=== PATIENT | male | born 1945 | race Two or more races ===

== ENCOUNTER 2016-11-11 11:47 | Observation (INO) | payer SELFPAY ==
--- NOTE | 2016-11-11 12:23 | CPEKG ---
Heart Rate: 99 RR Interval: 606 P-R Interval: 148 QRSD Interval: 92 QT Interval: 352 QTC Interval: 452 P Bradley: 59 QRS Bradley: 29 T Wave Bradley: 42 EKG Severity - NORMAL ECG - EKG Impression: SINUS RHYTHM Electronically Signed By: Eleonora Geiger 11-Nov-2016 14:37:05
[2016-11-11 12:48] LABS: % IMMATURE GRANULYOCYTES 0.4 % (0.0-1.1); ABSOLUTE IMMATURE GRANULOCYTES 0.04 10^3/uL (0.00-0.10); ADD DIFF? NO; ADD MORPH? NO; ADD SCAN? NO; ATYPICAL LYMPHOCYTE FLAG 10 (0-99); FRAGMENT RBC FLAG 0 (0-99); HEMOGLOBIN 14.5 g/dL (13.7-17.5); LEFT SHIFT FLG 0 (0-99); LIPEMIA HEMOLYSIS FLAG 90 (0-99); MEAN CELL HEMOGLOBIN 30.3 pg (27.9-34.1); MEAN CELL HEMOGLOBIN CONCENTR. 35.4 g/dL (32.4-36.7); MEAN CELL VOLUME 85.8 fL (81.5-99.8); MEAN PLATELET VOLUME 11.6 fL (8.7-11.7); PLATELET CLUMPS FLAG 0 (0-99); PLATELET COUNT 241 10^3/uL (150-400); RED BLOOD CELL COUNT 4.78 10^6/uL (4.40-6.38); RED CELL DISTRIBUTION WIDTH 11.9 % (11.5-15.2)
[2016-11-11 13:00] LABS: ANION GAP 14 mEq/L (8-16); CALCIUM 9.5 mg/dL (8.5-10.4); CARBON DIOXIDE 23 mEq/l (22-31); CHLORIDE 98 mEq/L (97-110); CREATININE 1.1 mg/dL (0.7-1.3); GLOMERULAR FILTRATION RATE > 60; POTASSIUM 4.5 mEq/L (3.5-5.2); SODIUM 135 mEq/L (134-144)
--- NOTE | 2016-11-11 13:08 | EDPHY ---
H & P Stated Complaint: C/O headache and RLE "falling asleep" x 2 days HPI/ROS: CHIEF COMPLAINT: Right leg numb HISTORY OF PRESENT ILLNESS: This patient is a Japanese-speaking 71 year old male with history of type II diabetes arriving with his family complaining of pain, numbness, and weakness in his right lower extremity, now resolved. The numbness was from his mid-michael down, and involved his entire foot. He has also had a mild headache intermittently for the last three days. He denies any weakness in his foot, or weakness or numbness elsewhere in his body. He endorses urinary urgency and frequency over the last couple days, and states he has not been feeling well. He denies dysuria. He takes pills to control his blood sugar that he gets at his home in [place], and states he rarely checks his blood sugar. He usually takes one pill with each meal, or two if he is feeling poorly. This morning, he took four because he felt his blood sugars may be off. He is currently visiting , and does not have a primary care physician in the area. He has not seen a doctor for years. He denies abdominal pain, nausea vomiting, diarrhea, chest pain, shortness of breath or other associated symptoms. No history of hypertension. HPI obtained primary through manufacturing manager at bedside. REVIEW OF SYSTEMS: A ten point review of systems was performed and is negative with the exception of the items mentioned in the HPI. - Personal History Current Tetanus Diphtheria and Acellular Pertussis (TDAP): No - Medical/Surgical History PMH: Diabetes mellitus, type II. Hx Diabetes: Yes Other PMH: diabetes type 2 - Social History Smoking Status: Never smoked Additional Social History: Nonsmoker. Occasional alcohol use. Family at bedside. Visiting from [place]. - Physical Exam Exam: General Appearance: Alert. Vital signs reviewed. Blood pressure 179/89. Eyes: Pupils equal and round, no conjunctival injection, no discharge. Anicteric. ENT, Mouth: Mucous membranes are moist, no oropharyngeal erythema or edema. Neck: No lymphadenopathy, supple. Respiratory: Lungs are clear to auscultation; no wheezes, rales, or rhonchi. Cardiovascular: Regular rate and rhythm; no murmur, rub, or gallop. Gastrointestinal: Abdomen is soft and nontender, no masses or organomegaly, bowel sounds normal. Skin: Warm and dry, no rashes on exposed skin, normal color. Back: Quarter-sized mass to left of spine at base of rib cage. Mobile, soft. Nontender to palpation over the thoracolumbar spine. No CVAT. Extremities: No lower extremity edema, no calf tenderness or swelling. Neurological: Alert and oriented. Cranial nerves II through XII are examined and are intact (visual acuity not tested). Strength is 5 over 5 bilaterally with testing of all major motor groups. Sensation is intact to light touch over all 4 extremities. Deep tendon reflexes are 2+ in the biceps and Constitutional: Initial Vital Signs Temperature (C) 36.7 C 11/11/16 11:55 Heart Rate 96 11/11/16 11:55 Respiratory Rate 18 11/11/16 11:55 Blood Pressure 179/89 H 11/11/16 11:55 O2 Sat (%) 94 11/11/16 11:55 O2 Delivery Mode Room Air Allergies/Adverse Reactions: No Known Allergies Allergy (Verified 11/11/16 16:21) Home Medications: Medication Instructions Recorded glyBURIDE [Glyburide] 5 mg PO TIDMEAL 11/11/16 Medical Decision Making - Diagnostics EKG Interpretation: 12 lead EKG is interpreted in Trace master View by emergency department physician. 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 Patient states he has had it since age 17. BGL 630. Plan to administer 2L IV NS and 5 units insulin. The patient's family will try to determine what pills he usually takes. Medication is glyburide. He took for 5 mg tablets this morning. 15:01 Reassessed patient. 15:46 BGL down to 423. Diabetic meal is being provided. I am recommending admission for further management of his diabetic hyperglycemia. He is not ketotic. He will likely need insulin. He will need diabetic teaching. He is going to be in the [place] for the next month and will need medical care during that time. I do not find evidence of lumbar radiculopathy and suspect that his foot numbness is diabetic neuropathy. He has remained hypertensive during his stay in the emergency department. He does not have a history of hypertension. If this persists he will need antihypertensive medication. Plan to admit for continued management and observation. Dr. Bell accepts admission. Differential Diagnosis: I considered a differential diagnosis that includes but is not limited to uncontrolled diabetes, diabetic ketoacidosis, hypertension, and infection. - Data Points Laboratory Results: Laboratory Results 11/11/16 12:30 11/11/16 14:55 Medications Given: Discontinued Medications Sodium Chloride (Ns) 1,000 mls @ 0 mls/hr IV ONCE ONE; Wide Open PRN Reason: Protocol Stop: 11/11/16 13:23 Last Admin: 11/11/16 13:36 Dose: 1,000 mls Sodium Chloride (Ns) 1,000 mls @ 0 mls/hr IV EDNOW ONE; Wide Open PRN Reason: Protocol Stop: 11/11/16 13:32 Last Admin: 11/11/16 13:36 Dose: 1,000 mls Insulin Human Regular (Humulin R) 5 unit IVP EDNOW ONE Stop: 11/11/16 13:24 Last Admin: 11/11/16 13:41 Dose: 5 units Departure - Departure Disposition: [facility] Inpatient Acute Clinical Impression: Hyperglycemia due to type 2 diabetes mellitus Qualifiers: Diabetes mellitus correction insulin use: without correction use Qualified Code(s ): E11.65 - Type 2 diabetes mellitus with hyperglycemia Hypertension Qualifiers: Hypertension type: essential hypertension Qualified Code(s): I10 - Essential ( primary) hypertension Condition: Fair Report Scribed for: Floresita Hernandez Report Scribed by: Anitha Moulton Date of Report: 11/11/16 Time of Report: 13:30 Physician Review and Approval Statement: 11/11/16 13:08 Portions of this note were transcribed by the chief medical physicist. I, Dr. Floresita Hernandez, personally performed the history, physical exam, and medical decision- making; and confirmed the accuracy of the information in the transcribed note.
[2016-11-11 13:16] LABS: GLUCOSE 630 mg/dL (70-100)
[2016-11-11] MEDS ORDERED: NS 1,000 ML IV ONE ×2 (13:22→13:31)
[2016-11-11] MEDS ORDERED: INSULIN REGULAR HUMAN 100 UNIT/ML IVP ONE (13:23)
[2016-11-11 14:09] LABS: HEMOGLOBIN A1C 14.2 % (4.0-6.0)
[2016-11-11 14:12] LABS: B-HYDROXYBUTYRATE 0.24 mmol/L (0.02-0.27)
[2016-11-11 14:32] LABS: COLOR COLORLESS; LEUKOCYTE ESTERASE,URINE NEGATIVE (NEGATIVE); NITRITE,URINE NEGATIVE (NEGATIVE)
[2016-11-11 14:39] LABS: RBC,URINE NONE SEEN /hpf (0-3); WBC,URINE NONE SEEN /hpf (0-3)
[2016-11-11 15:36] LABS: ANION GAP 11 mEq/L (8-16); CALCIUM 8.5 mg/dL (8.5-10.4); CARBON DIOXIDE 20 mEq/l (22-31); CHLORIDE 107 mEq/L (97-110); CREATININE 0.9 mg/dL (0.7-1.3); GLOMERULAR FILTRATION RATE > 60; GLUCOSE 422 mg/dL (70-100); POTASSIUM 3.9 mEq/L (3.5-5.2); SODIUM 138 mEq/L (134-144)
[2016-11-11] MEDS ORDERED: D50W 25 GM/50 ML SYR IVP PRN (17:14)
[2016-11-11] MEDS ORDERED: ACETAMINOPHEN 325 MG TAB PO PRN (17:15)
[2016-11-11] MEDS ORDERED: ONDANSETRON 4 MG/2 ML VIAL IVP PRN (17:15)
--- NOTE | 2016-11-11 17:52 | GHP ---
[f rep st] HISTORY AND PHYSICAL DATE OF ADMISSION: 11/11/2016 CHIEF COMPLAINT: High blood sugars. HISTORY OF PRESENT ILLNESS: This is a 71-year-old male, who arrived in the [facility] 3 weeks ago from [place], presented to the emergency department with high blood sugars. He states he has been feeling very weak with a mild headache. He reports polyuria, polydipsia, and polyphagia. He has been on g lyburide for some time which he takes 3 times a day. He denies a high carbohydrate diet. He denies any chest pain. He denies any shortness of breath. He denies any fevers or chills. PAST MEDICAL HISTORY: Diabetes. Denies any history of hypertension. PAST SURGICAL HISTORY: Denies. MEDICATIONS: Glyburide. ALLERGIES: No known drug allergies. SOCIAL HISTORY: The patient is visiting from [place] and plans to remain in the [facility] for the next 3 months. He denies any alcohol, tobacco, or illicit drug use. FAMILY HISTORY: Was significant for diabetes in his brothers. REVIEW OF SYSTEMS: Comprehensive 10-point review of systems was done and was negative, except for a s mentioned in the HPI. PHYSICAL EXAM: VITAL SIGNS: Blood pressure 174/106, pulse of 91, respiratory rate 18, O2 saturatio n 92% on room air. Temperature afebrile. GENERAL: No acute distress. HEAD: Normocephalic, atrau matic. EYES: PERRLA. Sclerae anicteric. MOUTH: Moist mucous membranes. NECK: Supple. No lymp hadenopathy. CARDIOVASCULAR: S1-S2. No murmurs, rubs, clicks, gallops, or JVD. No lower extremit y edema. PULMONARY: Lungs are clear. No wheezes, rales, or rhonchi. ABDOMEN: Soft, nontender, n ondistended. No guarding or rebound tenderness. Negative Burciaga sign. EXTREMITIES: No clubbing o r cyanosis. NEURO: Cranial nerves 2-12 grossly intact. No focal motor or sensory deficits. SKIN: Clear, no rashes. DIAGNOSTICS: EKG which I visualized and personally interpreted, shows sinus rhythm, rate 99 beats p er minute. There is no ST depression or elevation. There are no Q-waves. LABORATORY STUDIES: WBC is 9.2, hemoglobin 14.5, hematocrit 41, platelets 241. Sodium 138, potassi um 3.9, chloride 107, CO2 20 BUN 23, creatinine 0.9. Initial glucose was 630. Hemoglobin A1c was 1 4.2. UA was unremarkable with exception of 3+ glucose. ASSESSMENT AND PLAN: This is a 71-year-old, male, visiting from [place] presenting with: 1. Severe hyperglycemia in the setting of uncontrolled type 2 diabetes mellitus. Plan: I discusse d treatment options with the patient and informed him that he will likely need to be on insulin in t he short term. Will initiate NPH insulin at dose of 10 units at bedtime and 10 units in the morning . Also will be placed on a sliding scale regimen with regular insulin at this time as well. Will h old his home dose of glyburide and start him on metformin 500 mg twice daily, which can also be up t itrated to 1 g twice daily over the next few weeks. 2. Elevated blood pressure without history of hypertension. Plan: The patient is at high risk for diabetic nephropathy given his uncontrolled diabetes and hypertension. We will start Vasotec 5 mg p.o. daily and that should be titrated up as well. Ultimately, the patient will require outpatient followup while here in the [facility]. We will also preston d to get Case Management involved to help provide the patient with a glucometer, diabetic teaching, and also insulin. /[id number]/MODL
[2016-11-11] MEDS: POTASSIUM Cl (KCl) 20 MEQ in 1/2 NS 1,000 ML IV SCH (18:12)
[2016-11-11] MEDS: metFORMIN HCL 500 MG TAB PO SCH (18:12)
[2016-11-11] MEDS: ENALAPRIL MALEATE 5 MG TAB PO SCH (18:15)
[2016-11-11] MEDS: INSULIN NPH HUMAN 100 UNITS/ML SYRINGE SC SCH (20:33)
[2016-11-11 20:45] LABS: GLUCOSE 398 mg/dL (70-100)
[2016-11-11] MEDS: INSULIN REGULAR HUMAN 100 UNIT/ML SC SCH (21:23)
[2016-11-12] MEDS: INSULIN REGULAR HUMAN 100 UNIT/ML SC SCH ×3 (00:37→13:05)
[2016-11-12] MEDS: POTASSIUM Cl (KCl) 20 MEQ in 1/2 NS 1,000 ML IV SCH (03:00)
[2016-11-12 03:42] VITALS: TEMP 97.9
[2016-11-12 05:01] LABS: POTASSIUM 3.4 mEq/L (3.5-5.2)
[2016-11-12 05:03] LABS: ANION GAP 12 mEq/L (8-16); CALCIUM 8.9 mg/dL (8.5-10.4); CARBON DIOXIDE 24 mEq/l (22-31); CHLORIDE 110 mEq/L (97-110); GLOMERULAR FILTRATION RATE > 60; GLUCOSE 69 mg/dL (70-100); SODIUM 146 mEq/L (134-144)
[2016-11-12 07:10] VITALS: PULSE 86
[2016-11-12] MEDS: metFORMIN HCL 500 MG TAB PO SCH (09:18)
[2016-11-12] MEDS: ENALAPRIL MALEATE 5 MG TAB PO SCH (09:20)
[2016-11-12] MEDS: INSULIN NPH HUMAN 100 UNITS/ML SYRINGE SC SCH (09:20)
[2016-11-12 11:38] VITALS: BP 140/87; RESP 24; O2SAT 94
--- NOTE | 2016-11-12 12:04 | HOSPPROG ---
Hospitalist Progress Note Assessment/Plan: 71 yo M w symptomatic uncontrolled dm started on NPH and metformin w improved control enalapril for htn home today see dc summary Subjective: uncontrolled diabetes Objective: Vital Signs Temp Pulse Resp BP Pulse Ox 36.6 C 86 24 H 140/87 H 94 11/12/16 11:37 11/12/16 11:37 11/12/16 11:37 11/12/16 11:37 11/12/16 11:37 Laboratory Results 11/12/16 04:11 11/11/16 11/12/16 11/13/16 05:59 05:59 05:59 Intake Total 1999 1289 Output Total 1000 Balance 1000 1289 - Physical Exam Constitutional: no apparent distress, appears nourished Eyes: PERRL, anicteric sclera Ears, Nose, Mouth, Throat: moist mucous membranes, hearing normal Cardiovascular: regular rate and rhythym, no murmur, rub, or gallop Respiratory: no respiratory distress, no rales or rhonchi Gastrointestinal: normoactive bowel sounds, soft, non-tender abdomen Genitourinary: no bladder fullness, No driver in urethra Skin: warm, normal color Musculoskeletal: full muscle strength, no muscle tenderness Neurologic: AAOx3 ICD10 Worksheet Patient Problems: Problems Problem Status Onset Hyperglycemia due to type 2 diabetes mellitus Acute Hypertension Acute
[2016-11-12] MEDS ORDERED: PNEUMOC 13-VAL CONJ-DIP CRM/PF 0.5 ML SYR IM ONE (12:17)
--- NOTE | 2016-11-12 21:50 | GDS ---
[f rep st] DISCHARGE SUMMARY DISCHARGE DIAGNOSES: 1. Uncontrolled diabetes with hemoglobin A1c of 14.2, and presenting glucose of 630. 2. New hypertension. HOSPITAL COURSE: Please see admission history and physical by Dr. Randy Bell. The patient presente d with generalized weakness, polyuria, polydipsia. He has had diabetes for a long period of time an d takes glyburide 5 three times daily, but at this point in time has uncontrolled diabetes as eviden shweta by the aforementioned numbers. He was started on NPH 10 twice daily as well as metformin 500 tw ice daily and enalapril. He has done well. His morning sugar was 69 but otherwise his sugars have all been above 100. He is discharged home with that as well as a glucometer as well as encouragemen t from his family to follow up with [facility]. He lives in [place]. He does not see a doctor there, and he is visiting here for a number of months. He has given prescriptions with refills and encouraged to have a followup appointment at [facility]. /[id number]/MODL
== END 2016-11-12 15:53 | disposition home or self-care (01) ==
LOC: F3E 17:27
PROVIDERS: ADMIT Family Medicine; ATTEND Internal Medicine
DX: E11.65 Type 2 diabetes mellitus with hyperglycemia (principal); I10 Essential (primary) hypertension; Z79.84 Long term (current) use of oral hypoglycemic drugs; Z23 Encounter for immunization
CPT/HCPCS: 82947-QW; 96374; G0009; G0378; J1815

== ENCOUNTER 2016-12-28 18:03 | Inpatient (IN) | payer OTHER ==
--- NOTE | 2016-12-28 19:08 | EDPHY ---
H & P Time Seen by Provider: 12/28/16 18:47 HPI/ROS: CHIEF COMPLAINT: Coughing and fever HISTORY OF PRESENT ILLNESS: History with japanese interpreter at bedside. Patient has insulin-dependent diabetes and presents with cough and fever for 2 weeks with worsening shortness of breath over the last 2 days. Associated with productive white mucus but without chest pain. Subjective fever and chills. The daughter stated that when he started shaking he is hard to understand when he is talking. Associated with bloating and a little bit of a stomach ache and not being hungry. Associated with generalized fatigue. Symptoms moderate. REVIEW OF SYSTEMS: Eye: no change in vision ENT: no sore throat Cardiac: no chest pain or syncope Pulmonary: HPI Abdomen: no vomiting, diarrhea, abdominal pain Musculoskeletal: no back pain Skin: no rash Neuro: no headache Constitutional: HPI : no urinary symptoms A comprehensive 10 point review of systems is otherwise negative aside from elements mentioned in the history of present illness. PAST MEDICAL HISTORY: Insulin-dependent diabetes Social history: Nonsmoker, here with his daughters General Appearance: Alert and conversant, cooperative. Eyes: No scleral icterus. ENT, Mouth: Normal mucous membranes. Respiratory: Right lower lung crackles Cardiovascular: Regular rate and rhythm. Gastrointestinal: Abdomen is soft and non tender. Neurological: Alert and oriented x3. Normally conversant. Face symmetric, normal movement and sensation in all extremities. Skin: Warm and dry, no rashes. Musculoskeletal: No peripheral edema and no joint swelling. No calf tenderness. Psychiatric: Not agitated. Emergency Department course/MDM: Patient presents with cough fever and abnormal lung sounds. Plan for sepsis screen chest x-ray and labs. 1943: Chest x-ray personally reviewed shows bilateral pneumonia. Lactate negative. Ceftriaxone 1 g and azithromycin 500 mg admission for bilateral pneumonia with immune compromise and diabetes. 1954: Results discussed with patient and family. Does not have sepsis or severe sepsis. Smoking Status: Never smoked Constitutional: Initial Vital Signs Temperature (C) 36.6 C 12/28/16 18:14 Heart Rate 91 12/28/16 18:14 Respiratory Rate 18 12/28/16 18:14 Blood Pressure 157/87 H 12/28/16 18:14 O2 Sat (%) 94 12/28/16 18:14 O2 Delivery Mode Room Air Allergies/Adverse Reactions: No Known Allergies Allergy (Verified 12/28/16 18:13) Home Medications: Medication Instructions Recorded glyBURIDE [Glyburide] 5 mg PO TIDMEAL 11/11/16 Aspirin EC [Aspirin EC 81 mg (*)] 81 mg PO DAILY PRN 12/28/16 Atorvastatin Calcium [Lipitor 40 40 mg PO DAILY 12/28/16 mg (*)] Enalapril Maleate [Vasotec 20 MG 20 mg PO DAILY 12/28/16 (*)] Insulin NPH Human [humULIN N 100 14 units SC BIDAC 12/28/16 UNITS/ML (*)] metFORMIN HCL [Glucophage 500 mg 1,000 mg PO BIDMEAL 12/28/16 (*)] Medical Decision Making - Diagnostics Imaging Results: Chest x-ray personally reviewed shows pneumonia bilateral. Differential Diagnosis: Differential diagnosis considered for shortness of breath including but not limited to pulmonary infectious process, COPD, asthma, pulmonary embolus and congestive heart failure. Consult/Admit Bed Type: [place] [id number] - Data Points Laboratory Results: Laboratory Results 12/28/16 19:20 12/28/16 19:20 12/28/16 12/28/16 12/28/16 19:22 19:20 19:20 WBC RBC Hgb Hct MCV MCH MCHC RDW Plt Count MPV Neut % (Auto) Lymph % (Auto) [place] % (Auto) Eos % (Auto) Baso % (Auto) Nucleat RBC Rel Count Absolute Neuts (auto) Absolute Lymphs (auto) Absolute Monos (auto) Absolute Eos (auto) Absolute Basos (auto) Absolute Nucleated RBC Immature Gran % Seg Neutrophils % Band Neutrophils % Lymphocytes % Monocytes % Basophils % Immature Gran # Absolute Seg Neuts Absolute Band Neuts Absolute Lymphocytes Absolute Monocytes Absolute Basophils RBC/WBC/PLT Morphology Dohle Bodies Platelet Estimate PT INR APTT VBG Lactic Acid 1.5 mmol/L mmol/L (0.7-2.1) Sodium 129 mEq/L L mEq/L (134-144) Potassium 3.9 mEq/L mEq/L (3.5-5.2) Chloride 94 mEq/L L mEq/L (97-110) Carbon Dioxide 23 mEq/l mEq/l (22-31) Anion Gap 12 mEq/L mEq/L (8-16) BUN 27 mg/dL H mg/dL (7-23) Creatinine 1.3 mg/dL mg/dL (0.7-1.3) Estimated GFR 55 Glucose 388 mg/dL H mg/dL (70-100) Calcium 8.1 mg/dL L mg/dL (8.5-10.4) Total Bilirubin 0.6 mg/dL mg/dL (0.1-1.4) Procalcitonin 3.99 ng/mL H ng/mL (0.02-0.10) 12/28/16 12/28/16 19:20 19:20 WBC 8.91 10^3/uL 10^3/uL (3.80-9.50) RBC 4.06 10^6/uL L 10^6/uL (4.40-6.38) Hgb 11.7 g/dL L g/dL (13.7-17.5) Hct 33.9 % L % (40.0-51.0) MCV 83.5 fL fL (81.5-99.8) MCH 28.8 pg pg (27.9-34.1) MCHC 34.5 g/dL g/dL (32.4-36.7) RDW 12.2 % % (11.5-15.2) Plt Count 179 10^3/uL 10^3/uL (150-400) MPV 10.2 fL fL (8.7-11.7) Neut % (Auto) Not Reported Lymph % (Auto) Not Reported [place] % (Auto) Not Reported Eos % (Auto) Not Reported Baso % (Auto) Not Reported Nucleat RBC Rel Count 0.0 % % (0.0-0.2) Absolute Neuts (auto) Not Reported Absolute Lymphs (auto) Not Reported Absolute Monos (auto) Not Reported Absolute Eos (auto) Not Reported Absolute Basos (auto) Not Reported Absolute Nucleated RBC 0.00 10^3/uL 10^3/uL (0-0.01) Immature Gran % Not Reported Seg Neutrophils % 68 % % Band Neutrophils % 20 % % Lymphocytes % 9 % % Monocytes % 2 % % Basophils % 1 % % Immature Gran # Not Reported Absolute Seg Neuts 6.06 10^/uL 10^/uL (1.70-6.50) Absolute Band Neuts 1.78 10^3/uL H 10^3/uL (0.00-0.70) Absolute Lymphocytes 0.80 10^3/uL L 10^3/uL (1.00-3.00) Absolute Monocytes 0.18 10^3/uL L 10^3/uL (0.30-0.80) Absolute Basophils 0.09 10^3/uL 10^3/uL (0.02-0.10) RBC/WBC/PLT Morphology NORMAL (NORMAL) Dohle Bodies PRESENT H Platelet Estimate ADEQUATE (ADEQ) PT 13.7 SEC SEC (12.0-15.0) INR 1.06 (0.83-1.16) APTT 33.1 SEC SEC (23.0-38.0) VBG Lactic Acid Sodium Potassium Chloride Carbon Dioxide Anion Gap BUN Creatinine Estimated GFR Glucose Calcium Total Bilirubin Procalcitonin Medications Given: Albuterol/Ipratropium (Duoneb) 3 ml IH QID JOSE Stop: 06/26/17 20:59 Last Admin: 12/28/16 22:01 Dose: 3 ml Guaifenesin (Mucinex) 1,200 mg PO BID [facility] Stop: 06/26/17 20:44 Last Admin: 12/28/16 21:17 Dose: Not Given Discontinued Medications Azithromycin 500 mg/ Dextrose 255 mls @ 255 mls/hr IV EDNOW ONE PRN Reason: Protocol Stop: 12/28/16 20:45 Last Admin: 12/28/16 21:11 Dose: 255 mls Ceftriaxone Sodium/Dextrose (Rocephin 1 Gm (Premix)) 50 mls @ 100 mls/hr IV EDNOW ONE PRN Reason: Protocol Stop: 12/28/16 20:15 Last Admin: 12/28/16 20:11 Dose: 50 mls Sodium Chloride (Ns) 1,000 mls @ 0 mls/hr IV EDNOW ONE; Wide Open PRN Reason: Protocol Stop: 12/28/16 19:47 Last Admin: 12/28/16 20:10 Dose: 1,000 mls Sodium Chloride (Ns) 1,000 mls @ 3,000 mls/hr IV ONCE ONE Stop: 12/28/16 20:53 Last Admin: 12/28/16 21:11 Dose: 1,000 mls Departure - Departure Disposition: [facility] Inpatient Acute Clinical Impression: Pneumonia Qualifiers: Pneumonia type: due to unspecified organism Laterality: bilateral Lung location : lower lobe of lung Qualified Code(s): J18.9 - Pneumonia, unspecified organism Condition: Fair
[2016-12-28 19:38] LABS: ADD MORPH? NO; ATYPICAL LYMPHOCYTE FLAG 0 (0-99); FRAGMENT RBC FLAG 0 (0-99); HEMATOCRIT 33.9 % (40.0-51.0); HEMOGLOBIN 11.7 g/dL (13.7-17.5); LIPEMIA HEMOLYSIS FLAG 90 (0-99); MEAN CELL HEMOGLOBIN 28.8 pg (27.9-34.1); MEAN CELL HEMOGLOBIN CONCENTR. 34.5 g/dL (32.4-36.7); MEAN CELL VOLUME 83.5 fL (81.5-99.8); MEAN PLATELET VOLUME 10.2 fL (8.7-11.7); PLATELET CLUMPS FLAG 10 (0-99); PLATELET COUNT 179 10^3/uL (150-400); RED BLOOD CELL COUNT 4.06 10^6/uL (4.40-6.38); RED CELL DISTRIBUTION WIDTH 12.2 % (11.5-15.2)
[2016-12-28 19:39] LABS: ADD DIFF? YES; LEFT SHIFT FLG 100 (0-99)
[2016-12-28 19:40] LABS: ADD SCAN? NO
[2016-12-28] MEDS ORDERED: AZITHROMYCIN IV 500 MG in D5W 250 ML IV ONE (19:46)
[2016-12-28] MEDS ORDERED: NS 1,000 ML IV ONE ×2 (19:46→20:34)
[2016-12-28 19:48] LABS: INR 1.06 (0.83-1.16); PROTIME(PATIENT) 13.7 SEC (12.0-15.0)
[2016-12-28 19:49] LABS: APTT 33.1 SEC (23.0-38.0)
[2016-12-28 19:56] LABS: ANION GAP 12 mEq/L (8-16); BILIRUBIN,TOTAL 0.6 mg/dL (0.1-1.4); CALCIUM 8.1 mg/dL (8.5-10.4); CARBON DIOXIDE 23 mEq/l (22-31); CHLORIDE 94 mEq/L (97-110); CREATININE 1.3 mg/dL (0.7-1.3); GLOMERULAR FILTRATION RATE 55; GLUCOSE 388 mg/dL (70-100); POTASSIUM 3.9 mEq/L (3.5-5.2); SODIUM 129 mEq/L (134-144)
[2016-12-28] MEDS ORDERED: ACETAMINOPHEN 325 MG TAB PO PRN (20:23)
[2016-12-28] MEDS ORDERED: ONDANSETRON DISINTEGRATING 4 MG TAB PO PRN (20:23)
[2016-12-28] MEDS ORDERED: ONDANSETRON 4 MG/2 ML VIAL IVP PRN (20:23)
[2016-12-28] MEDS ORDERED: ASPIRIN EC 81 MG TAB PO PRN (20:36)
[2016-12-28] MEDS ORDERED: D50W 25 GM/50 ML SYR IVP PRN (20:36)
[2016-12-28 20:49] LABS: PLATELET ESTIMATE ADEQUATE (ADEQ)
--- NOTE | 2016-12-28 21:03 | GHP ---
[f rep st] HISTORY AND PHYSICAL DATE OF ADMISSION: 12/28/2016 CHIEF COMPLAINT: Cough. HISTORY OF PRESENT ILLNESS: This is a 71-year-old male with a history of diabetes, who presents with about a week and a half to 2 weeks of feeling poorly. This includes fever, cough, it has been mildl y productive of some clear sputum. No one else is sick around him. He does not have any known under lying lung disease. PAST MEDICAL/SURGICAL HISTORY: 1. Diabetes mellitus type 2. He had a recent admission here for hyperglycemia, recently started on insulin and metformin. 2. Hypertension. MEDICATIONS: Please see medication reconciliation. ALLERGIES: No known drug allergies. FAMILY HISTORY: Reviewed and noncontributory. SOCIAL HISTORY: He lives in [place]. He is here visiting his daughters. He has 18 children total, 1 2 daughters and 6 sons. REVIEW OF SYSTEMS: A 10-point review of systems is conducted and is negative except per HPI. PHYSICAL EXAM: VITAL SIGNS: Blood pressure 163/87, heart rate 88, respiration rate 18, saturating 9 3% on 3 L. Temperature 36.9. GENERAL: The patient is a pleasant man who appears comfortable, in no acute distress. HEENT: Shows him to be normocephalic atraumatic. CARDIOVASCULAR: Shows a regular rate and rhythm. No murmurs, rubs, or gallops. PULMONARY: Shows him to be in no respiratory distr ess, but he has diffuse inspiratory and expiratory crackles. ABDOMEN: Soft, nontender, nondistended . SKIN: No rash. : Shows no Goodman. NEUROLOGIC: Shows him to be alert and oriented x3. He is moving all extremities. PSYCHIATRIC: Shows normal mood and affect. LABS: White count is 8.9, there is no differential, hemoglobin 11. INR is 1. Lactate 1.5. Sodium is 129, glucose is 388, creatinine is 1.3. DATA: 1. I discussed with Dr. Norris. We will admit to medical/surgery. 2. Chest x-ray, which I personally viewed and interpreted, shows bilateral infiltrates with bibasila r predominance. IMPRESSION/PLAN: This is a 71-year-old male with likely bilateral pneumonia. 1. Pneumonia: This is quite impressive on his x-ray but he is not very dyspneic. You do see a annie le fluid in the major fissure. I suspect this is pneumonia given his overall presentation but these findings could be consistent with other processes like pulmonary edema, or an interstitial lung disea se. We will check an influenza. Given his diabetes and age, I think it is reasonable to continue tr eatment for a bacterial pneumonia now. I have drawn a procalcitonin as well. I note that he has a n ormal white count. We will provide him with nebulizers and Mucinex as well. 2. Diabetes mellitus with hyperglycemia: We will continue his home insulin and add sliding scale in sulin. His last A1c was 14. 3. Hypertension: Blood pressure here is still elevated. He had recently been started on enalapril. If it is still elevated tomorrow, consider up titrating. /[id number]/MODL
[2016-12-28] MEDS: guaiFENesin 600 MG TAB.ER PO SCH ×2 (21:11→21:17)
[2016-12-28] MEDS ORDERED: INSULIN LISPRO 100 UNIT/ML SC ONE (21:49)
[2016-12-28] MEDS: IPRATROPIUM/ALBUTEROL 3 ML DEYVIAL IH SCH (22:01)
[2016-12-29] MEDS: methylPREDNISolone SOD SUCC 125 MG/2 ML VIAL IVP SCH ×4 (00:06→11:47)
[2016-12-29 04:58] LABS: % IMMATURE GRANULYOCYTES 0.4 % (0.0-1.1); ABSOLUTE IMMATURE GRANULOCYTES 0.04 10^3/uL (0.00-0.10); ADD DIFF? NO; ADD MORPH? NO; ADD SCAN? NO; ATYPICAL LYMPHOCYTE FLAG 0 (0-99); FRAGMENT RBC FLAG 0 (0-99); HEMATOCRIT 31.4 % (40.0-51.0); HEMOGLOBIN 11.1 g/dL (13.7-17.5); LEFT SHIFT FLG 90 (0-99); LIPEMIA HEMOLYSIS FLAG 90 (0-99); MEAN CELL HEMOGLOBIN 29.3 pg (27.9-34.1); MEAN CELL HEMOGLOBIN CONCENTR. 35.4 g/dL (32.4-36.7); MEAN CELL VOLUME 82.8 fL (81.5-99.8); MEAN PLATELET VOLUME 10.6 fL (8.7-11.7); PLATELET CLUMPS FLAG 0 (0-99); PLATELET COUNT 179 10^3/uL (150-400); RED BLOOD CELL COUNT 3.79 10^6/uL (4.40-6.38); RED CELL DISTRIBUTION WIDTH 12.3 % (11.5-15.2)
[2016-12-29 05:14] LABS: ALANINE AMINOTRANSFERASE 168 IU/L (21-72); ALBUMIN 2.3 g/dL (3.5-5.0); ALKALINE PHOSPHATASE 157 IU/L (38-126); ANION GAP 9 mEq/L (8-16); ASPARTATE AMINOTRANSFERASE 361 IU/L (17-59); BILIRUBIN,TOTAL 0.5 mg/dL (0.1-1.4); CALCIUM 7.9 mg/dL (8.5-10.4); CARBON DIOXIDE 20 mEq/l (22-31); CHLORIDE 101 mEq/L (97-110); CREATININE 1.1 mg/dL (0.7-1.3); GLOMERULAR FILTRATION RATE > 60; GLUCOSE 236 mg/dL (70-100); POTASSIUM 4.2 mEq/L (3.5-5.2); SODIUM 130 mEq/L (134-144); TOTAL PROTEIN 5.2 g/dL (6.3-8.2)
[2016-12-29] MEDS: IPRATROPIUM/ALBUTEROL 3 ML DEYVIAL IH SCH ×4 (05:39→21:17)
[2016-12-29] MEDS ORDERED: INSULIN NPH HUMAN 100 UNITS/ML SYRINGE SC SCH (07:30)
[2016-12-29] MEDS ORDERED: metFORMIN HCL 500 MG TAB PO SCH (08:00)
--- NOTE | 2016-12-29 08:33 | HOSPPROG ---
Hospitalist Progress Note Assessment/Plan: Wake patient is a 71-year-old male with history of diabetes who presented the emergency room for feeling poorly. Today is my 1st encounter with the patient. Chart reviewed. * bilateral pneumonia Procalcitonin is elevated/high risk for bacterial infection White blood cell count is not elevated He is requiring 5 L of oxygen On ceftriaxone and azithromycin respiratory panel negative will ask ID to get involved * diabetes type 2 Glucoses are quite elevated Continue sliding scale will dc steroids for now * elevated liver enzymes Will repeat and also check for hepatitis * hypertension Blood pressure is 157/87 * tachycardia due to acute illness *hyponatremia likely secondary to dehydration * plan. The patient is requiring 5 L of oxygen. Is normally on room air. He will require another midnight stay to treat with IV antibiotics. This will make him inpatient status. Will ask ID to get involved. Subjective: yves says he feels poorly, has had a poor appetite. Has ongoing shortness of breath (met w patient via test equipment mechanic) Objective: Vital Signs Temp Pulse Resp BP Pulse Ox 37.1 C 105 H 22 H 157/87 H 93 12/29/16 07:09 12/29/16 07:09 12/29/16 07:09 12/29/16 07:09 12/29/16 07:09 Microbiology 12/28/16 20:30 Respiratory Panel (PCR) - Final Unspecified No Organism Detected Laboratory Results 12/29/16 04:25 12/29/16 04:25 12/28/16 12/29/16 12/30/16 05:59 05:59 05:59 Intake Total 300 Balance 300 PT 13.7 SEC (12.0-15.0) 12/28/16 19:20 INR 1.06 (0.83-1.16) 12/28/16 19:20 - Physical Exam Constitutional: chronically ill appearing Eyes: PERRL Ears, Nose, Mouth, Throat: hearing normal Cardiovascular: regular rate and rhythym, tachycardia Respiratory: reduced air movement, rhonchi (scattered throughout, ) Gastrointestinal: normoactive bowel sounds, soft, non-tender abdomen Skin: warm Musculoskeletal: full muscle strength Neurologic: AAOx3 Psychiatric: interacting appropriately ICD10 Worksheet Patient Problems: Problems Problem Status Onset Pneumonia Acute Hyperglycemia due to type 2 diabetes mellitus Acute Hypertension Acute
[2016-12-29] MEDS ORDERED: AZITHROMYCIN IV 500 MG in D5W 250 ML IV SCH (09:00)
[2016-12-29] MEDS: INSULIN LISPRO 100 UNIT/ML SC SCH ×2 (09:07→12:40)
[2016-12-29] MEDS: ENOXAPARIN 40 MG/0.4 ML SYR SC SCH (10:13)
[2016-12-29] MEDS: ENALAPRIL MALEATE 10 MG TAB PO SCH (10:14)
[2016-12-29] MEDS: ATORVASTATIN CALCIUM 40 MG TAB PO SCH (10:15)
[2016-12-29] MEDS: guaiFENesin 600 MG TAB.ER PO SCH ×2 (10:15→20:33)
[2016-12-29 12:27] LABS: GLUCOSE 554 mg/dL (70-100)
[2016-12-29] MEDS ORDERED: INSULIN LISPRO 100 UNIT/ML SC ONE (12:31)
--- NOTE | 2016-12-29 16:51 | HOSPPROG ---
Hospitalist Progress Note Assessment/Plan: Wake patient is a 71-year-old male with history of diabetes who presented the emergency room for feeling poorly. Today is my 1st encounter with the patient. Chart reviewed. * bilateral pneumonia Procalcitonin is elevated/high risk for bacterial infection White blood cell count is not elevated He is requiring 5 L of oxygen On ceftriaxone and azithromycin respiratory panel negative will ask ID to get involved * diabetes type 2 Glucoses are quite elevated Continue sliding scale will dc steroids for now * elevated liver enzymes Will repeat and also check for hepatitis * hypertension Blood pressure is 157/87 * tachycardia due to acute illness *hyponatremia likely secondary to dehydration * plan. reviewed his care with both Dr. Palafox and Dr. Erika Garvey. Dr. Garvey to change antibiotic to Levaquin to cover Legionella. >40 minutes face to face, coordinating care and tx to ICU/ appreciate both Dr Palafox and Dr Garvey. Objective: Vital Signs Temp Pulse Resp BP Pulse Ox 36.9 C 97 20 157/87 H 90 L 12/29/16 15:12 12/29/16 15:12 12/29/16 15:12 12/29/16 15:12 12/29/16 16:09 Microbiology 12/28/16 20:30 Respiratory Panel (PCR) - Final Unspecified No Organism Detected Laboratory Results 12/29/16 04:25 12/28/16 12/29/16 12/30/16 05:59 05:59 05:59 Intake Total 300 Balance 300 PT 13.7 SEC (12.0-15.0) 12/28/16 19:20 INR 1.06 (0.83-1.16) 12/28/16 19:20 ICD10 Worksheet Patient Problems: Problems Problem Status Onset Pneumonia Acute Hyperglycemia due to type 2 diabetes mellitus Acute Hypertension Acute
[2016-12-29 16:53] LABS: BASE EXCESS -5.9 mEq/L (-2.5-2.5); BICARBONATE 16 mEq/L (22-26); MEASURED OXYGEN SATURATION 88 % (92-95); PCO2 23 mmHg (34-38); PO2 50 mmHg (65-75); TCO2 17 mEq/L (23-27)
[2016-12-29 16:59] LABS: GLUCOSE 454 mg/dL (70-100)
[2016-12-29] MEDS ORDERED: D5W 1,000 ML IV SCH (17:15)
--- NOTE | 2016-12-29 17:31 | GCON ---
[f rep st] CONSULTATION DATE OF CONSULTATION: 12/28/2016 REFERRING PHYSICIAN: Ewa Madrid NP REASON FOR CONSULTATION: Bilateral pneumonia. Entire exam and physical exam were obtained with the assistance of an piano case and bench assembler. HISTORY OF PRESENT ILLNESS: A 71-year-old male with poorly controlled diabetes x19 years who normally lives in [place], who for the last 2 months has been visiting his daughters here in the [place] area. Three days ago, he describes the onset of dry cough and very severe myalgias. He felt very poorly, but he reports that his family told him "you just have a cold." Symptoms progressed and patient presented to the ER 12/28/2016 at 1845 with complaints of cough and fever. His myalgias were so severe that he had difficulty walking. In the emergency room, patient was found to have bilateral pneumonia with a negative lactate and a positive procalcitonin. The patient was given a dose of IV ceftriaxone and azithromycin and was admitted to the floor. Overnight, the patient has had increasing O2 demands with plans to transfer to the ICU at the time of my history and physical. The patient was on 11 L but was not dyspneic. PAST MEDICAL HISTORY: 1. Diabetes x19 years, recent admission [facility] for hyperglycemia and was started on insulin and metformin. 2. Hypertension. MEDICATIONS: Ceftriaxone 1 g IV daily, azithromycin 500 mg, insulin, Lipitor, aspirin. ALLERGIES: NKDA. FAMILY HISTORY: The patient denies recent sick contacts, otherwise, was reviewed and noncontributory. 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 He rides horses. No other livestock contact. No pets with his family here locally. He has 18 children; 12 daughters and 6 sons. No tobacco use. Immunization: Patient received pneumococcal 13 on 2016. REVIEW OF SYSTEMS: A complete 10-point Review of Systems was performed and was negative except as mentioned in the HPI. Specific pertinent negatives are: He denies headache, sore throat, rash, diarrhea. He does report a 3- to 5-pound weight loss. PHYSICAL EXAM: VITAL SIGNS: Blood pressure 157/87, heart rate in the low 100s , O2 sat 92% on 11 L, respiratory rate is 15. GENERAL: This is a relatively comfortable male sitting up in bed, wearing a face mask for oxygen supplementation. HEENT: Pupils are reactive bilaterally. [place] sclera. Oropharynx: Poor dentition. Moist mucous membranes. No oral ulcerations. NECK: Supple. No lymphadenopathy. No tenderness. CARDIOVASCULAR: Borderline tachycardia. Regular rate. No murmur. CHEST: Patient has bilateral crackles to about [address] bilaterally. No accessory respiratory muscle use. ABDOMEN: Soft, nondistended. Mild tenderness to the right lower quadrant. EXTREMITIES: No clubbing, cyanosis, or edema. No splinter hemorrhages or Janeway lesions suggestive of endocarditis. No joint swelling. SKIN: No rash. NEUROLOGIC: He is alert oriented x4. Fluent speech. Moving all 4 extremities equally. LABORATORY: White count is 9.9, hematocrit 31, platelets of 179, 95% neutrophils. INR 1. Lactic acid 1.5. Creatinine 1.1. Glucose from 200-600. AST 361, ALT 168, alk phos 157, albumin 2.3. Procalcitonin 3.9. Respiratory PCR was negative as well as influenza PCR. Blood cultures were collected yesterday, 12/28/2016, and are no growth to date. ASSESSMENT AND PLAN: This is a 71-year-old male who presents with fever and cough, who has evolving sepsis secondary to bilateral pneumonia. Associated findings of sepsis include leukocytosis, anemia, elevated liver function tests and worsening hypoxia. 1. Sepsis secondary to bilateral pneumonia. 2. Bilateral pneumonia. The patient without clear evidence of zoonotic source of pneumonia. Suspect pneumococcus, Haemophilus influenzae, but due to severity of disease, consider legionella. Mycoplasma and chlamydia are less like as resp panel PCR negative. 3. Elevated LFTs RECOMMENDATIONS: 1. DC ceftriaxone and azithromycin. Would start levofloxacin 750mg for it slightly better performance with coverage for legionella. 2. Would obtain HIV, hepatitis C, hepatitis B and A serologies to better sort out elevated liver function tests, although suspect due to sepsis. 3. We will continue to monitor blood cultures. 4. Would obtain a sputum culture to try to pinpoint a pathogen. Case was discussed with primary team. /[id number]/MODL MTDD
[2016-12-29] MEDS ORDERED: ALTEPLASE 2 MG VIAL IVP PRN (17:39)
[2016-12-29] MEDS: INSULIN REGULAR HUMAN 100 UNIT in NS 100 ML IV SCH (17:40)
[2016-12-29 18:11] LABS: POTASSIUM 5.6 mEq/L (3.5-5.2)
[2016-12-29 18:48] LABS: ANION GAP 12 mEq/L (8-16); CARBON DIOXIDE 17 mEq/l (22-31); CHLORIDE 100 mEq/L (97-110); CREATININE 1.2 mg/dL (0.7-1.3); GLOMERULAR FILTRATION RATE > 60; GLUCOSE 442 mg/dL (70-100); SODIUM 129 mEq/L (134-144)
[2016-12-29 18:54] LABS: SPECIMEN HEMOLYSIS 289
[2016-12-29 19:50] LABS: HEMOGLOBIN A1C 11.6 % (4.0-6.0)
[2016-12-29 21:08] LABS: ANION GAP 9 mEq/L (8-16); CALCIUM 8.2 mg/dL (8.5-10.4); CARBON DIOXIDE 21 mEq/l (22-31); CHLORIDE 100 mEq/L (97-110); CREATININE 1.2 mg/dL (0.7-1.3); GLOMERULAR FILTRATION RATE > 60; GLUCOSE 360 mg/dL (70-100); POTASSIUM 3.7 mEq/L (3.5-5.2); SODIUM 130 mEq/L (134-144)
--- NOTE | 2016-12-29 21:16 | GCON ---
[f rep st] CONSULTATION PULMONARY CONSULTATION DATE OF CONSULTATION: 12/29/2016 REASON FOR CONSULTATION: Community-acquired pneumonia. HISTORY: The patient is a very pleasant 71-year-old gentleman who generally lives in [place]. He has been here for the last couple of months visiting family. He states that he has had 10 days of a primarily dry cough, associated with some shortness of breath. He has been unable to bring up much mucus and cannot really characterize this. He has had myalgias and some shortness of breath/dyspnea on exertion. However, the latter has been fairly minimal. However, he has not been exerting himself much secondary to his illness. He has had some fatigue, and has felt ill. He seems to describe some fevers. He presented to the emergency room yesterday. Chest x-ray showed bibasilar infiltrates. He was not hypotensive. He was initially given ceftriaxone and azithromycin. The latter has been changed to Levaquin by Infectious Disease. No other family members have been ill. He is not working. 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 There is no history of tuberculosis. He has had no other exposures. PAST MEDICAL HISTORY: He has insulin-requiring diabetes, systemic hypertension , and hyperlipidemia. SOCIAL HISTORY: The patient is here living with family. He lives in [place] on a ranch/farm. He has exposure to horses. He harvests beans and corn. He is a never smoker. Significant alcohol is negative. FAMILY HISTORY: Noncontributory/negative. No one in his family has been ill. REVIEW OF SYSTEMS: He denies previous issues with his lungs or his heart. There is no history of thromboembolic disease. He denies previous pneumonia. A 10-point review of systems otherwise negative. ALLERGIES: No known drug allergies. PHYSICAL EXAMINATION: GENERAL: Reveals a pleasant gentleman who is sitting comfortably in bed. Nasal cannula oxygen is in place at 6 L. He is conversant , does not appear tachypneic. He is eating dinner. HEENT: Remarkable for the fact that he is well tanned. Blood pressure is 157/81, heart rate 95 with sinus rhythm on the monitor. Saturations are 93%. HEENT: Unremarkable for lymphadenopathy or thyromegaly. There is no obvious jugular venous distention. Mucous membranes are moist. NECK: Supple. PULMONARY: The chest reveals rales on the right side, more than the left. There are consolidative changes, no rhonchi. There are no wheezes. There are also some rales at the left base. Rales extend about three-quarters of the way up on the right side. HEART: Regular in rate and rhythm. There is a soft systolic murmur, no gallops. P2 appears normal. ABDOMEN: Soft and nontender. Bowel sounds are present. EXTREMITIES: Unremarkable for edema, cords, or tenderness. NEUROLOGIC: Examination is intact and nonfocal. He is conversant and appropriate. LABORATORY DATA: Chest x-ray shows progressive bilateral infiltrates, right greater than left. The latest x-ray shows a new PICC line in place. White blood cell count is 10,000, hematocrit 31.4. Platelets are 179,000. PT and PTT on admission were normal. Blood gas done a few hours ago shows a pH of 7.46, pCO2 of 23, and PO2 50 with saturations of 88%. I do not know the exact amount oxygen he was on at that time. Venous lactate last night was 1.5. Sodium is 129 with potassium of 5.6, CO2 17, BUN 30 with a creatinine of 1.2. Glucoses have been elevated in the 400-500 range. Calcium is 8. Serology is negative for flu. Hepatitis antibodies are negative. Other serology is pending. ASSESSMENT: 1. Community-acquired pneumonia. The patient has a bilateral multilobar pneumonia, presumably bacterial. Current antibiotic coverage is appropriate. Currently, he is doing well, is comfortable, not particularly tachypneic. This appears to be somewhat better compared to several hours ago when he was transferred to the Intensive Care Unit. He is hypoxemic with appropriate respiratory compensation for mild acidosis. He could possibly worsen if his pneumoniae continues to progress before he gets better. Other issues could impact his illness, such as a development of ARDS, but there is no evidence of this at the current time. Bronchopulmonary therapies do need to be continued. He was given steroids last night, but this resulted in significantly elevated blood glucoses. They have now been stopped, and would not appear to be indicated at this time. 2. Hyperglycemia. Secondary to underlying insulin-dependent diabetes, this current illness and steroids given previously. Insulin coverage is appropriate. 3. Hyponatremia. Likely secondary to his respiratory illness. TSH will be checked. Sodium will be followed. 4. Deep vein thrombosis prophylaxis: On enoxaparin. RECOMMENDATIONS: The patient will be kept in the Intensive Care Unit tonight. Followup chest x-ray will be obtained in the a.m. Current antibiotics will be continued per recommendations of Infectious Disease. Laboratory and clinical status will be followed. If he becomes more dyspneic, we can try him on Vapotherm. Hopefully BiPAP will not be required. Followup arterial blood gas can be obtained if he clinically deteriorates. Further plans and recommendations will be made based on his progress over the next 12-24 hours. /[id number]/MODL MTDD
[2016-12-30] MEDS: INSULIN REGULAR HUMAN 100 UNIT in NS 100 ML IV SCH (01:34)
[2016-12-30 04:50] LABS: % IMMATURE GRANULYOCYTES 0.5 % (0.0-1.1); ABSOLUTE IMMATURE GRANULOCYTES 0.07 10^3/uL (0.00-0.10); ADD DIFF? NO; ADD MORPH? NO; ADD SCAN? NO; ATYPICAL LYMPHOCYTE FLAG 0 (0-99); FRAGMENT RBC FLAG 0 (0-99); HEMATOCRIT 29.2 % (40.0-51.0); HEMOGLOBIN 10.1 g/dL (13.7-17.5); LEFT SHIFT FLG 40 (0-99); LIPEMIA HEMOLYSIS FLAG 90 (0-99); MEAN CELL HEMOGLOBIN 29.2 pg (27.9-34.1); MEAN CELL HEMOGLOBIN CONCENTR. 34.6 g/dL (32.4-36.7); MEAN CELL VOLUME 84.4 fL (81.5-99.8); MEAN PLATELET VOLUME 10.6 fL (8.7-11.7); PLATELET CLUMPS FLAG 0 (0-99); PLATELET COUNT 225 10^3/uL (150-400); RED BLOOD CELL COUNT 3.46 10^6/uL (4.40-6.38); RED CELL DISTRIBUTION WIDTH 12.3 % (11.5-15.2)
[2016-12-30 05:10] LABS: ALANINE AMINOTRANSFERASE 396 IU/L (21-72); ALBUMIN 2.3 g/dL (3.5-5.0); ALKALINE PHOSPHATASE 178 IU/L (38-126); ANION GAP 9 mEq/L (8-16); BILIRUBIN,TOTAL 0.4 mg/dL (0.1-1.4); BILIRUBIN-CONJUGATED 0.3 mg/dL (0.0-0.5); BILIRUBIN-UNCONJUGATED 0.1 mg/dL (0.0-1.1); CALCIUM 8.4 mg/dL (8.5-10.4); CARBON DIOXIDE 21 mEq/l (22-31); CHLORIDE 106 mEq/L (97-110); CREATININE 1.2 mg/dL (0.7-1.3); GLOMERULAR FILTRATION RATE > 60; GLUCOSE 115 mg/dL (70-100); POTASSIUM 3.8 mEq/L (3.5-5.2); SODIUM 136 mEq/L (134-144); TOTAL PROTEIN 5.2 g/dL (6.3-8.2)
[2016-12-30] MEDS: IPRATROPIUM/ALBUTEROL 3 ML DEYVIAL IH SCH ×4 (05:26→21:18)
[2016-12-30 05:40] LABS: ASPARTATE AMINOTRANSFERASE 832 IU/L (17-59)
--- NOTE | 2016-12-30 09:52 | PCMIDPN ---
Assessment/Plan: 1. Multi lobar pneumonia in poorly controlled diabetic: Given the history of myalgias and viral type symptoms 2 weeks ago, suspect this is a post viral pneumonia with either Staph aureus or pneumococcus. Thankfully , the patient is improving on levofloxacin, which we will continue. Given that he has no diarrhea and is taking p. o., will change to p.o. levofloxacin. Legionella urine antigen pending. Sputum culture also pending. HIV antibody negative. Will need to be vigilant for development of pleural effusion. 2. Elevated transaminases and mildly elevated alkaline phosphatase: Acute hepatitis panel negative. Patient was recently started on atorvastatin. I feel that we should hold this for now. (Pharmacy aware) Obtain right upper quadrant ultrasound. 3. Blood cultures with coagulase-negative Staph in / bottles: Suspect this is contaminant. No further evaluation for this. Subjective: History reviewed. Patient is from [facility] and has been here in [place] for the past 2 months visiting his daughters. They live in a mobile home here in [place], with only adults, all of whom have been healthy. There is also a healthy dog in the house. Patient has had no unusual exposures, no water, pool, sauna or found exposures. Takes walks every day. Patient states that while in [place] he was drinking 15 beers every week, but has had no alcohol since he has been here. He reports being diagnosed with diabetes mellitus 18 years ago while hospitalized, and was told that he needed to take glyburide every single day. The patient has been purchasing glyburide over the counter since then, with no medical follow-up. He reports developing severe myalgias approximately 2 weeks ago with cough and rhinorrhea. Then, this past Monday things became much worse with new shortness of breath. Objective: Levaquin 750 mg IV daily day 2 (status post ceftriaxone and azithromycin x1) T-max 37.1degrees 97% on 4 L Vital Signs Temp Pulse Resp BP Pulse Ox 37.0 C 104 H 22 H 127/74 H 93 12/30/16 08:00 12/30/16 08:00 12/30/16 08:00 12/30/16 08:00 12/30/16 08:00 Microbiology 12/29/16 21:30 - Final Sputum, Expectorated Laboratory Results 12/30/16 04:40 12/30/16 04:40 12/29/16 12/30/16 12/31/16 05:59 05:59 05:59 Intake Total 547.9 Output Total 300 Balance 247.9 Blood cultures 1/4 bottles with coagulase-negative Staphylococcus Sputum culture pending Urine Legionella antigen pending Respiratory viral PCR negative Influenza A/B PCR negative Chest x-ray with multilobar pneumonia right middle lobe and left lower lobe - Physical Exam General Appearance: alert, no apparent distress EENT: pharynx normal, No thrush Respiratory: other (Coarse breath sounds/crackles bilateral lung botello. No wheeze.) Cardiac/Chest: regular rate, rhythm, No systolic murmur Abdomen: non-tender, soft Skin: No rash Neuro/Psych: oriented x 3 ICD10 Worksheet Patient Problems: Problems Problem Status Onset Pneumonia Acute Hyperglycemia due to type 2 diabetes mellitus Acute Hypertension Acute
[2016-12-30] MEDS: ENOXAPARIN 40 MG/0.4 ML SYR SC SCH (10:03)
[2016-12-30] MEDS: guaiFENesin 600 MG TAB.ER PO SCH ×2 (10:03→22:32)
[2016-12-30] MEDS: ENALAPRIL MALEATE 10 MG TAB PO SCH (10:54)
[2016-12-30] MEDS: ATORVASTATIN CALCIUM 40 MG TAB PO SCH (11:12)
[2016-12-30] MEDS: oxyCODONE IR 5 MG TAB PO PRN (13:33)
--- NOTE | 2016-12-30 14:44 | PDINTPN ---
Livestock Farmworker Progress Note Assessment/Plan: Assessment/plan: 71 M admitted with symptoms suggestive of CAP, possibly post-viral. Treated initially with CTX/Zithro and changed to IV levaquin per ID. Moved to ICU 12/29 for inc RR (mid 20's) and concerns for worsening PNA. Never hypotensive and minimal O2 requirement. He was initially treated with steroids for his CAP, which caused significant hyperglycemia, requiring an insulin drip overnight. * CAP- clinically stable on Levaquin, which was changed to PO by ID today. Cx so far unrevealing and coag neg staph in blood thought to be contaminant. * DM- change insulin drip to more aggressive/appropriate SS. He apparently was only using glyburide in [place] with poor clinical followup. Steroids dc'd. * OK for med/surg Subjective: stable overnight. o pressors, no vent, no bipap and sats >90% on 3 lpm NC. Objective: Vital Signs Temp Pulse Resp BP Pulse Ox 37.2 C 97 22 H 125/70 H 94 12/30/16 11:30 12/30/16 11:30 12/30/16 11:30 12/30/16 11:30 12/30/16 11:30 Microbiology 12/29/16 21:30 - Final Sputum, Expectorated Laboratory Results 12/30/16 04:40 12/30/16 04:40 12/29/16 12/30/16 12/31/16 05:59 05:59 05:59 Intake Total 547.9 Output Total 300 Balance 247.9 PT 13.7 SEC (12.0-15.0) 12/28/16 19:20 INR 1.06 (0.83-1.16) 12/28/16 19:20 Physical Exam - Physical Exam General Appearance: WD/WN, alert, no apparent distress EENT: PERRL/EOMI Neck: supple Respiratory: No respiratory distress Cardiac/Chest: regular rate, rhythm, No edema Abdomen: non-tender, soft, No distended Skin: normal color, warm/dry Lymphatic: no adenopathy Extremities: No pedal edema Neuro/Psych: alert, normal mood/affect ICD10 Worksheet Patient Problems: Problems Problem Status Onset Pneumonia Acute Hyperglycemia due to type 2 diabetes mellitus Acute Hypertension Acute
[2016-12-30] MEDS ORDERED: D50W 25 GM/50 ML SYR IVP PRN (14:45)
--- NOTE | 2016-12-30 15:02 | HOSPPROG ---
Hospitalist Progress Note Assessment/Plan: 71 yo M w uncontrolled dm here w pneumonia bilateral pneumonia felt post viral on levoflox appreciate ID input cxr stable diabetes type 2 was very high on steroids, which have been dc'd a1c 11 = uncontrolled dm start lantus 25 and lispro ss elevated liver enzymes rising not hypotensive hepatocellular injury, not obstructive suspect will peak today tachycardia due to acute illness hyponatremia resolved hypovolemic proph: enox Subjective: case d/w dr kincaid. cxr (interp by me) w b/l airpsace disease Objective: Vital Signs Temp Pulse Resp BP Pulse Ox 37.2 C 97 22 H 125/70 H 94 12/30/16 11:30 12/30/16 11:30 12/30/16 11:30 12/30/16 11:30 12/30/16 11:30 Microbiology 12/29/16 21:30 - Final Sputum, Expectorated Laboratory Results 12/30/16 04:40 12/30/16 04:40 12/29/16 12/30/16 12/31/16 05:59 05:59 05:59 Intake Total 547.9 Output Total 300 Balance 247.9 PT 13.7 SEC (12.0-15.0) 12/28/16 19:20 INR 1.06 (0.83-1.16) 12/28/16 19:20 - Physical Exam Constitutional: no apparent distress, appears nourished Eyes: PERRL, anicteric sclera Ears, Nose, Mouth, Throat: moist mucous membranes, hearing normal Cardiovascular: regular rate and rhythym Respiratory: no respiratory distress, no rales or rhonchi Gastrointestinal: normoactive bowel sounds, soft, non-tender abdomen Genitourinary: no bladder fullness, No driver in urethra Skin: warm, normal color Musculoskeletal: full muscle strength ICD10 Worksheet Patient Problems: Problems Problem Status Onset Pneumonia Acute Hyperglycemia due to type 2 diabetes mellitus Acute Hypertension Acute
[2016-12-30] MEDS: INSULIN GLARGINE 100 UNITS/ML SYRINGE SC SCH (16:16)
[2016-12-30] MEDS: INSULIN LISPRO 100 UNIT/ML SC SCH (22:31)
[2016-12-31 04:52] LABS: ALANINE AMINOTRANSFERASE 481 IU/L (21-72); ALBUMIN 2.3 g/dL (3.5-5.0); ALKALINE PHOSPHATASE 189 IU/L (38-126); ANION GAP 11 mEq/L (8-16); ASPARTATE AMINOTRANSFERASE 636 IU/L (17-59); BILIRUBIN,TOTAL 0.3 mg/dL (0.1-1.4); CALCIUM 8.3 mg/dL (8.5-10.4); CARBON DIOXIDE 22 mEq/l (22-31); CHLORIDE 103 mEq/L (97-110); CREATININE 1.3 mg/dL (0.7-1.3); GLOMERULAR FILTRATION RATE 55; GLUCOSE 395 mg/dL (70-100); POTASSIUM 4.4 mEq/L (3.5-5.2); SODIUM 136 mEq/L (134-144); TOTAL PROTEIN 5.2 g/dL (6.3-8.2)
[2016-12-31 04:58] LABS: INR 1.18 (0.83-1.16)
[2016-12-31] MEDS: IPRATROPIUM/ALBUTEROL 3 ML DEYVIAL IH SCH ×4 (05:41→21:07)
[2016-12-31 10:07] LABS: GLUCOSE 374 mg/dL (70-100)
[2016-12-31] MEDS: INSULIN GLARGINE 100 UNITS/ML SYRINGE SC SCH (11:13)
[2016-12-31] MEDS: INSULIN LISPRO 100 UNIT/ML SC SCH ×3 (11:13→16:29)
[2016-12-31] MEDS: ENALAPRIL MALEATE 10 MG TAB PO SCH (11:15)
[2016-12-31] MEDS: guaiFENesin 600 MG TAB.ER PO SCH ×2 (11:15→20:56)
[2016-12-31] MEDS: ENOXAPARIN 40 MG/0.4 ML SYR SC SCH (11:16)
[2016-12-31] MEDS ORDERED: D50W 25 GM/50 ML SYR IVP PRN (14:19)
--- NOTE | 2016-12-31 14:27 | HOSPPROG ---
Hospitalist Progress Note Assessment/Plan: 71 yo M w uncontrolled dm here w pneumonia bilateral pneumonia felt post viral on levoflox appreciate ID input cxr stable diabetes type 2 was very high on steroids, which have been dc'd a1c 11 = uncontrolled dm start lantus 25 add hs lantus (12) increase ss to high dose elevated liver enzymes trending down neg workup hypoxemia: add IS cxr in AM tachycardia due to acute illness hyponatremia resolved hypovolemic proph: enox Subjective: lft's improved. hyperglycemic. case d/w dr villarreal Objective: Vital Signs Temp Pulse Resp BP Pulse Ox 36.4 C 103 H 17 146/85 H 91 L 12/31/16 11:14 12/31/16 11:14 12/31/16 11:14 12/31/16 11:15 12/31/16 11:14 Microbiology 12/29/16 21:30 - Final Sputum, Expectorated Laboratory Results 12/30/16 04:40 12/31/16 09:33 12/30/16 12/31/16 01/01/17 05:59 05:59 05:59 Intake Total 547.9 1090 Output Total 300 575 Balance 247.9 515 PT 15.0 SEC (12.0-15.0) 12/31/16 04:30 INR 1.18 (0.83-1.16) H 12/31/16 04:30 - Physical Exam Constitutional: no apparent distress, appears nourished Eyes: PERRL, anicteric sclera Ears, Nose, Mouth, Throat: moist mucous membranes, hearing normal Cardiovascular: regular rate and rhythym, no murmur, rub, or gallop, No tachycardia Respiratory: no respiratory distress, other (b/l crackles) Gastrointestinal: normoactive bowel sounds, soft, non-tender abdomen, No romano' s sign Genitourinary: no bladder fullness, No driver in urethra Skin: warm, normal color Musculoskeletal: full muscle strength Neurologic: AAOx3 ICD10 Worksheet Patient Problems: Problems Problem Status Onset Pneumonia Acute Hyperglycemia due to type 2 diabetes mellitus Acute Hypertension Acute
[2016-12-31] MEDS ORDERED: INSULIN GLARGINE 100 UNITS/ML SYRINGE SC SCH ×2 (14:30→21:00)
--- NOTE | 2016-12-31 16:31 | PCMIDPN ---
Assessment/Plan: Assessment/Plan: 1. Bilateral Pneumonia: - Currently on levquin -s/p ceftriaxone/azithro and solumedrol -Leginella pending. -Clinically starting to improve but slow 2. leukocytosis: -likely multifactorial (infection, recent steroids etc) - monitor 3. Loose stools - one episode today. monitor closely. if becomes more frequent, then will check c. diff meds levaquin Subjective: Afebrile. on 4L o2. Feeling better. Still with cough and sputum production. Denies abd pain. having loose stools this morning. spoke with patient and family through spanish medical interpreter. Objective: Vital Signs Temp Pulse Resp BP Pulse Ox 36.5 C 108 H 17 158/85 H 94 12/31/16 16:00 12/31/16 16:00 12/31/16 16:00 12/31/16 16:00 12/31/16 16:00 Microbiology 12/29/16 21:30 - Final Sputum, Expectorated Sputum Culture - Final Laboratory Results 12/30/16 04:40 12/31/16 09:33 12/30/16 12/31/16 01/01/17 05:59 05:59 05:59 Intake Total 547.9 1090 Output Total 300 575 Balance 247.9 515 - Physical Exam General Appearance: alert, no apparent distress Respiratory: coarse breath sounds (bilatearlly) Cardiac/Chest: regular rate, rhythm Extremities: swelling (lower legs and feet) Abdomen: normal bowel sounds, non-tender, soft Skin: other (no rash) ICD10 Worksheet Patient Problems: Problems Problem Status Onset Pneumonia Acute Hyperglycemia due to type 2 diabetes mellitus Acute Hypertension Acute
[2017-01-01] MEDS: oxyCODONE IR 5 MG TAB PO PRN (03:29)
[2017-01-01] MEDS: IPRATROPIUM/ALBUTEROL 3 ML DEYVIAL IH SCH ×2 (06:57→12:09)
[2017-01-01 08:26] LABS: ALANINE AMINOTRANSFERASE 351 IU/L (21-72); ALBUMIN 2.5 g/dL (3.5-5.0); ALKALINE PHOSPHATASE 154 IU/L (38-126); ANION GAP 10 mEq/L (8-16); ASPARTATE AMINOTRANSFERASE 234 IU/L (17-59); BILIRUBIN,TOTAL 0.5 mg/dL (0.1-1.4); CALCIUM 8.1 mg/dL (8.5-10.4); CARBON DIOXIDE 25 mEq/l (22-31); CHLORIDE 108 mEq/L (97-110); CREATININE 1.2 mg/dL (0.7-1.3); GLOMERULAR FILTRATION RATE > 60; GLUCOSE 88 mg/dL (70-100); POTASSIUM 3.6 mEq/L (3.5-5.2); SODIUM 143 mEq/L (134-144); TOTAL PROTEIN 5.5 g/dL (6.3-8.2)
--- NOTE | 2017-01-01 08:26 | PDHOMEO2F ---
Home Oxygen Face to Face Home Orders: I certify that a physician or a nurse practitioner or physician's certified registered dental assistant has had a [id number] encounter with this patient on the date of this order due to the diagnosis listed, which relates to the primary reason the patient requires home oxygen. Alternative treatments have been tried, or considered, and deemed ineffective. It is anticipated that supplemental oxygen will result in improvement with treatment. Home oxygen qualifying diagnosis: pneumonia SpO2 on room air (%): 85 Frequency of home oxygen needed: continuous Home oxygen liters per minute: 2 Home oxygen delivery device: nasal cannula Concentrator: No E-tanks for mobility and back up: No I certify that, based on these findings, the home oxygen is medically necessary for this patient for the following length of time. Length of time home oxygen needed: 1 month
[2017-01-01] MEDS: INSULIN GLARGINE 100 UNITS/ML SYRINGE SC SCH (09:13)
[2017-01-01] MEDS: ENALAPRIL MALEATE 10 MG TAB PO SCH (09:14)
[2017-01-01] MEDS: guaiFENesin 600 MG TAB.ER PO SCH (09:14)
[2017-01-01] MEDS: ENOXAPARIN 40 MG/0.4 ML SYR SC SCH (09:14)
[2017-01-01] MEDS: INSULIN LISPRO 100 UNIT/ML SC SCH ×2 (09:30→15:39)
[2017-01-01 11:35] VITALS: BP 149/89; TEMP 97.8
[2017-01-01 12:18] VITALS: PULSE 110; RESP 14
[2017-01-01 12:58] VITALS: O2SAT 86
--- NOTE | 2017-01-01 13:43 | HOSPPROG ---
Hospitalist Progress Note Assessment/Plan: 71 yo M w uncontrolled dm here w pneumonia bilateral pneumonia felt post viral on levoflox appreciate ID input cxr stable diabetes type 2 was very high on steroids, which have been dc'd a1c 11 = uncontrolled dm start lantus 25 add hs lantus (12) increase ss to high dose elevated liver enzymes trending down neg workup hypoxemia: add IS cxr in AM tachycardia due to acute illness hyponatremia resolved hypovolemic proph: enox home today > 30 minutes see dc summary Subjective: case d/w dr villarreal. anxious for dc Objective: Vital Signs Temp Pulse Resp BP Pulse Ox 36.6 C 110 H 14 149/89 H 86 L 01/01/17 11:34 01/01/17 12:12 01/01/17 12:12 01/01/17 11:34 01/01/17 12:58 Microbiology 12/29/16 21:30 - Final Sputum, Expectorated Sputum Culture - Final Laboratory Results 12/30/16 04:40 01/01/17 08:00 12/31/16 01/01/17 01/02/17 05:59 05:59 05:59 Intake Total 1090 700 Output Total 575 Balance 515 700 PT 15.0 SEC (12.0-15.0) 12/31/16 04:30 INR 1.18 (0.83-1.16) H 12/31/16 04:30 - Physical Exam Constitutional: no apparent distress, appears nourished Eyes: PERRL, anicteric sclera Ears, Nose, Mouth, Throat: moist mucous membranes, hearing normal Cardiovascular: regular rate and rhythym, no murmur, rub, or gallop Respiratory: no respiratory distress, no rales or rhonchi Gastrointestinal: normoactive bowel sounds, soft, non-tender abdomen Genitourinary: no bladder fullness, No driver in urethra Skin: warm, normal color Musculoskeletal: full muscle strength, no muscle tenderness Neurologic: AAOx3 ICD10 Worksheet Patient Problems: Problems Problem Status Onset Pneumonia Acute Hyperglycemia due to type 2 diabetes mellitus Acute Hypertension Acute
--- NOTE | 2017-01-01 13:55 | PCMIDPN ---
Assessment/Plan: Assessment/Plan: 1. Bilateral Pneumonia: - Currently on levquin -s/p ceftriaxone/azithro and solumedrol -Legionella pending. -Clinically starting to improve -plan for at least 10 days of therapy, -care coordinated with hospitalist team 2. leukocytosis: -likely multifactorial (infection, recent steroids etc) - monitor 3. Loose stools - one episode today. monitor closely. if becomes more frequent, then will check c. diff meds levaquin 750mg daily- Subjective: AFebrile. feeling better each day. less sputum production. walking hallways, no diarrhea. no abd pain Objective: Vital Signs Temp Pulse Resp BP Pulse Ox 36.6 C 110 H 14 149/89 H 86 L 01/01/17 11:34 01/01/17 12:12 01/01/17 12:12 01/01/17 11:34 01/01/17 12:58 Microbiology 12/29/16 21:30 - Final Sputum, Expectorated Sputum Culture - Final Laboratory Results 12/30/16 04:40 01/01/17 08:00 12/31/16 01/01/17 01/02/17 05:59 05:59 05:59 Intake Total 1090 700 Output Total 575 Balance 515 700 - Physical Exam General Appearance: alert, no apparent distress Respiratory: coarse breath sounds (bilateral) Cardiac/Chest: regular rate, rhythm Extremities: No swelling Abdomen: normal bowel sounds, non-tender, soft, No distended ICD10 Worksheet Patient Problems: Problems Problem Status Onset Pneumonia Acute Hyperglycemia due to type 2 diabetes mellitus Acute Hypertension Acute
--- NOTE | 2017-01-01 14:02 | GDS ---
[f rep st] DISCHARGE SUMMARY DISCHARGE DIAGNOSES: 1. Postviral bilateral pneumonia. 2. Uncontrolled diabetes. 3. Significant hyperglycemia in the setting of steroids. 4. Hypoxia. 5. Sepsis with resolved septic physiology. HOSPITAL COURSE: Please see admission history and physical by Dr. Benjamín Yang. The patient pre sented with increased work of breathing. Chest x-ray showed bilateral infiltrates. He had a leukocy tosis. This is consistent with a pneumonia, as he had a recent viral syndrome consistent. It is fel t to be postviral. He had normal venous lactate. Blood cultures grew out coag-negative staph felt t o be consistent with contaminant. He was treated with levofloxacin. Legionella urinary antigen is pending. He has spent 24 hours in [facility] ICU with an insulin drip given hyperglycemia in the setting of steroid therapy. Steroids were disc ontinued. He had a hemoglobin A1c of 11. N[facility] He is discharged home with outpatient followup and oxygen. /[id number]/MODL
--- NOTE | 2017-01-01 17:04 | ASMTCMCOM ---
CM Note CM Note Notes: Pt is a 71 y/o man admitted with pneumonia. Pt has a history of diabetes. Pt lives in [place] the [place] visiting his daughters. CM spoke w/ Ewa Adkins NP regarding pt's care. She will put in a consult for infectious disease. Pt is very ill at this time. CM will follow once pt becomes more medically stable. Date Signed: 12/29/2016 10:13 AM Electronically Signed By:Angelina Kan
--- NOTE | 2017-01-01 17:06 | ASMTCMCOM ---
CM Note CM Note Notes: Patient has a post viral pneumonia with either Staph Aureus or Pneumococcus. Patient is improving on Levofloxacin. Legionella urine antigen pending. HIV and hepatitis panels are negative. Patient may move to med surg today. He remains on 3L of O2. OT/PT have been ordered. Patient is [facility] which will not pay for any rehab services post hospital. CM will follow. Date Signed: 12/30/2016 12:30 PM Electronically Signed By:Nikki Martínez
--- NOTE | 2017-01-01 18:20 | ASDISCHSUM ---
Discharge Information Plan Status:Home with DME or Oxygen Medically Cleared to Leave:01/01/2017 Discharge Date:01/01/2017 04:20 PM CM D/C Disposition:Home, Routine, Self-Care ADT D/C Disposition:Home, Routine, Self-Care Projected Discharge Date:12/31/2016 12:00 AM Transportation at D/C:Family Discharge Delay Reason: Follow-Up Date:12/31/2016 12:00 AM Discharge Slot: Final Diagnosis:Postviral bilateral PNA Placement Information Patient Contact Information Contact Name:CLAUDINECHAGO Relationship:Daughter Address: Work Phone: City: [facility] Phone: State/[place] Code: Email: Financial Information Financial Class:Self-Pay Primary Plan Desc:[employer] Primary Plan Number:99 Secondary Plan Desc: Secondary Plan Number: Assessment Information [facility] Progress Note CM Note LUL Note Notes: Pt is a 71 y/o man admitted with pneumonia. Pt has a history of diabetes. Pt lives in [place] but [place] the [place] visiting his daughters. CM spoke w/ Ewa Adkins NP regarding pt's care. She will put in a consult for infectious disease. Pt is very ill at this time. CM will follow once pt becomes more medically stable. Date Signed: 12/29/2016 10:13 AM Electronically Signed By:Angelina Kan [facility] CM Progress Note CM Note LUL Note Notes: Patient has a post viral pneumonia with either Staph Aureus or Pneumococcus. Patient is improving on Levofloxacin. Legionella urine antigen pending. HIV and hepatitis panels are negative. Patient may move to med surg today. He remains on 3L of O2. OT/PT have been ordered. Patient is [facility] which will not pay for any rehab services post hospital. CM will follow. Date Signed: 12/30/2016 12:30 PM Electronically Signed By:Nikki Martínez Intervention Information
--- NOTE | 2017-01-01 18:22 | ASMTCMCOM ---
CM Note CM Note Notes: Reviewed chart, spoke w/ KERON Gorman. Pt to discharge today w/ family support and home oxygen. RT set up oxygen. No other needs identified. Pt to f/u as directed. CM avail for any further issues or concerns. Date Signed: 01/01/2017 06:22 PM Electronically Signed By:Judy Reyes
== END 2017-01-01 16:20 | disposition home or self-care (01) | DRG 871 ==
LOC: INTOOBSV 19:50 → F3E 20:43 → OBSVTOIN 12-29 11:31 → F2N 12-29 16:48 → F1N 12-30 20:50
PROVIDERS: ADMIT Student in an Organized Health Care Education/Training Program; ATTEND Student in an Organized Health Care Education/Training Program
PROC: 02HV33Z Insertion of Infusion Device into Superior Vena Cava, Percutaneous Approach (ICD-10-PCS; principal; 2016-12-29)
DX: A41.9 Sepsis, unspecified organism (principal); J18.8 Other pneumonia, unspecified organism; E11.65 Type 2 diabetes mellitus with hyperglycemia; I10 Essential (primary) hypertension; Z79.4 Long term (current) use of insulin; Z79.84 Long term (current) use of oral hypoglycemic drugs
CPT/HCPCS: 82947-QW; 87449-90; 96374; 97110-GP; 97116-GP; 97161-GP; 97165-GO; 97530-GP; C1751; G0378; G0472; J0456; J0696; J1650; J1815; J1956